=== PATIENT | female | born 2000 | race Caucasian/White ===

== ENCOUNTER 2021-09-07 23:09 | Emergency (ER) | payer OTHER ==
[~2021-09-07] VITALS: Ht 157.5 cm; Wt 83.9 kg
[~2021-09-07 23:09] MED LIST: AMOX50SU PO; CODACEE120 PO; EPIN0.15 IM; IBUP100S PO; LORA1SY; NEOCOLOTSU AD; PRED15SY PO; PROM25 PO
[2021-09-08] MEDS ORDERED: ONDA4ODT MM (03:01)
== END 2021-09-08 03:15 | disposition home or self-care (01) ==
LOC: ER 23:09
DX: R11.2 Nausea with vomiting, unspecified (principal); R19.7 Diarrhea, unspecified
CPT/HCPCS: 99283; A9270